=== PATIENT | male | born 1975 | race Two or more races ===

== ENCOUNTER 2020-09-19 08:59 | Emergency (ER) | payer OTHER ==
[~2020-09-19] VITALS: Ht 195.6 cm; Wt 113.0 kg
[2020-09-19] MEDS ORDERED: ONDANSETRON HCL 4MG/2ML INJ IV STA (09:22)
[2020-09-19] MEDS ORDERED: MORPHINE SULFATE 4 MG/ML CPJ (NOT FOR IM USE) IV STA (09:22)
[2020-09-19] MEDS ORDERED: CEFAZOLIN 1000MG PREMIX 50 ML IV ONE (09:30)
[2020-09-19] MEDS ORDERED: SODIUM CHLORIDE 0.9% 1,000 ML IV ONE (09:30)
[2020-09-19] MEDS ORDERED: TETANUS, DIPHTHERIA, PERTUSSIS VAC/PF 0.5ML (>7YR OLD) IM ONE ×2 (09:30→10:49)
[2020-09-19 09:47] LABS: BASOPHILS % 0.6 % (0.0-2.0); EOSINOPHILS % 0.5 % (0.0-5.0); HEMATOCRIT. 43.1 % (42.0-52.0); HEMOGLOBIN. 14.4 g/dL (14.0-18.0); LYMPHOCYTES % 14.7 % (20.0-50.0); MEAN CORPUSCULAR HEMOGLOBIN 30.1 pg (28.0-32.0); MEAN CORPUSCULAR VOLUME 90.1 fL (80.0-94.0); MEAN PLATELET VOLUME 8.4 fl (7.4-10.4); MONOCYTES % 3.8 % (2.0-8.0); NEUTROPHILS % 80.4 % (40.0-76.0); PLATELET 284 x1000/uL (130-400); RED BLOOD CELL COUNT 4.78 mill/uL (4.7-6.1); RED CELL DISTRIBUTION WIDTH 13.8 % (11.6-14.6)
[2020-09-19 09:54] LABS: CHLORIDE 108 mEq/L (98-107)
[2020-09-19 09:57] LABS: INR 1.1; PROTHROMBIN TIME 11.6 sec (9.6-11.0)
[2020-09-19] MEDS ORDERED: ETOMIDATE 2MG/ML 10ML VIAL IV ONE (10:30)
[2020-09-19] MEDS ORDERED: MORPHINE SULFATE 10 MG/ML CPJ IV ONE (13:30)
[2020-09-19] MEDS ORDERED: ONDANSETRON HCL 4MG/2ML INJ IV ONE (13:30)
[2020-09-19] MEDS ORDERED: HYDROMORPHONE HCL/PF 2MG/ML CPJ IV ONE (16:30)
[2020-09-19 17:30] VITALS: BP 151/63
== END 2020-09-19 17:54 | disposition short-term general hospital (02) ==
LOC: ER 08:59 → CANBEDREQ 15:50 → ER 17:54
DX: S52.502B Unspecified fracture of the lower end of left radius, initial encounter for open fracture type I or II (principal); M54.5 Low back pain; Z20.822 Contact with and (suspected) exposure to COVID-19; W17.89XA Other fall from one level to another, initial encounter; Y93.89 Activity, other specified; Y92.89 Other specified places as the place of occurrence of the external cause; Y99.8 Other external cause status
CPT/HCPCS: 25605; 36415; 71045; 72040; 72100; 72170; 73090; 73100; 73110; 76705; 80053; 85025; 85610; 87426; 90471; 90715; 93005; 96365; 96375; 96376; 99152; 99285; J0690; J1170; J2270; J2405; J3490; J7030; L0172